=== PATIENT | male | born 1980 | race Caucasian/White ===

== ENCOUNTER → 2023-07-30 07:43 | Outpatient (CLI) | payer BC, SELFPAY ==
--- NOTE | ~2023-07-30 | US_ITS ---
EXAMINATION: US soft tissue lower back DATE: 07/30/2023 08:17 INDICATION: Back lump. TECHNIQUE: Multiple grayscale and Doppler ultrasound images of the lower back were obtained. COMPARISON: None FINDINGS: In the patient's area of concern in the midline lower back, there is a 3 mm discontinuity o f the fascia deep to the subcutaneous fat with associated 5 mm mass. IMPRESSION: 1. Small hernia in the patient's area of concern in the lower back. Reviewed, dictated and finalized at location A. [employer]
== END ==
PROVIDERS: PCP Student in an Organized Health Care Education/Training Program; Visit Provider Student in an Organized Health Care Education/Training Program
DX: R22.2 Localized swelling, mass and lump, trunk (principal)
CPT/HCPCS: 76705

== ENCOUNTER 2024-01-24 15:19 | Emergency (ER) | payer BC, SELFPAY ==
[2024-01-24 15:28] VITALS: BP 113/64; PULSE 61; RESP 18; TEMP 36.5; O2SAT 100
--- NOTE | 2024-01-24 15:52 | ED.EAR ---
HPI - Ear Problem General Chief complaint: Ear Stated complaint: Right Ear Pain Time Seen by Provider: 01/24/24 15:45 Source: patient, RN notes reviewed and old records reviewed Mode of arrival: ambulatory Limitations: no limitations History of Present Illness HPI Narrative: 43 [facility] with complaints of right ear pain for 3 days duration with some pain radiating to his right jaw neck area. Patient denies any known fevers chills or sweats, denies any sinus congestion or drainage or any sore throat. Patient reports that he has taken some OTC pain medication for symptoms. MD Complaint: ear pain Location: right ear Duration: constant Severity: moderate Discharge from ear: Reports no Treatment prior to arrival: oral analgesic Related Data Home Medications Medication Instructions Recorded Confirmed pregabalin 75 mg capsule mg 01/24/24 sertraline 50 mg tablet mg 01/24/24 sildenafil 100 mg tablet mg 01/24/24 Allergies Allergy/AdvReac Type Severity Reaction Status Date / Time No Known Allergies Allergy Unverified 01/24/24 15:21 Review of Systems Review of Systems: CONSTITUTIONAL: Denies malaise, chills, sweats, or fever. EYES: Denies visual changes, redness, or discharge. ENT: Reports no acute rhinorrhea, congestion, sinus pain,positive for right otalgia radiates to right jaw neck. and no sore throat. CARDIOVASCULAR: Denies chest pain, palpitations, or edema. RESPIRATORY: Reports no cough.? Denies dyspnea. GASTROINTESTINAL: Denies abdominal pain, nausea, vomiting, diarrhea SKIN: Denies rash or itching. MUSCULOSKELETAL: Denies myalgia. NEUROLOGIC: Denies headache. 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 There is no relevant family history pertinent to the presenting complaint Exam Narrative: GENERAL: Well-appearing, well-nourished, and in no acute distress. HEAD: Normocephalic EYES: PERRLA, conjunctivae clear ENT: Nares clear, turbinates edematous and erythematous, scant clear discharge. Mucous membranes moist.Right TM red and bulging, Left TM pearly weaver with dull light reflex bilaterally; no tragal tenderness. Oropharynx erythematous without lesions. Tonsils not enlarged and without exudate, no drooling, no hoarseness, no trismus, uvula midline. NECK: Supple. No lymphadenopathy CHEST: Clear to auscultation, breath sounds equal. No wheezing, rhonchi, rales, or stridor. No respiratory distress, speaks in full sentences.no cough noted SAO2 100% on room air HEART: Regular rate and rhythm. No murmur heard. SKIN: Warm, dry, no rash. NEURO: Alert and oriented x3. PSYCH: Normal mood and affect Course Course Emergency Course: Patient is aware of diagnosis, understands and agrees to treatment plan.? Anticipatory guidance given.? Patient agrees to follow-up as directed and is aware of reasons to seek care at the emergency department. Portions of this record may have been created with voice recognition software Level of Care: Express Care Visit Vital Signs Vital signs: Vital Signs Temperature 36.5 C 01/24/24 15:28 Pulse Rate 61 01/24/24 15:28 Respiratory Rate 18
== END 2024-01-24 16:06 | disposition home or self-care (01) ==
PROVIDERS: Emergency Provider Registered Nurse; PCP Student in an Organized Health Care Education/Training Program
DX: H65.01 Acute serous otitis media, right ear (principal); M79.7 Fibromyalgia
CPT/HCPCS: 99203; G0463

== ENCOUNTER 2025-06-29 08:23 | Outpatient (CLI) | payer BC, SELFPAY | END 2025-06-29 08:24 | disposition home or self-care (01) | PROVIDERS: PCP Student in an Organized Health Care Education/Training Program; Visit Provider Otolaryngology | DX: H93.19 Tinnitus, unspecified ear (principal) | CPT/HCPCS: 92557; 92567 ==